=== PATIENT | male | born 1985 | race Caucasian/White ===

== ENCOUNTER 2018-03-16 02:52 | Emergency (ER) | payer OTHER ==
[~2018-03-16] VITALS: Ht 170.2 cm; Wt 65.8 kg
[2018-03-16 02:56] VITALS: BP 140/86
== END 2018-03-16 03:18 | disposition left against medical advice (07) ==
LOC: M.ERS 02:52
DX: J95.830 Postprocedural hemorrhage of a respiratory system organ or structure following a respiratory system procedure (principal)